=== PATIENT | female | born 1950 | race Caucasian/White ===

== ENCOUNTER 2016-05-31 17:37 | Emergency (ER) | payer OTHER ==
[2016-05-31] MEDS ORDERED: NS 0.9% 1000 ML* 1,000 ML IV ONE ×2 (18:01→18:23)
[2016-05-31] MEDS ORDERED: Ibuprofen TAB* 600 MG PO ONE (18:23)
[2016-05-31] MEDS ORDERED: Ondansetron INJ* 2 MG/ML VIAL IV ONE (18:23)
[2016-05-31] MEDS ORDERED: Butalb/Acetamin/Caff TAB* 1 TAB PO ONE (18:24)
[2016-05-31 18:50] LABS: Hematocrit 43 % (35-47); Hemoglobin 14.5 g/dl (12.0-16.0); Mean Corpuscular HGB Conc 34 g/dl (31-36); Mean Corpuscular Hemoglobin 30 pg (27-31); Mean Corpuscular Volume 89 fL (80-97); Mean Platelet Volume 8 um3 (7.4-10.4); Red Blood Count 4.86 10^6/ul (4.0-5.4); Red Cell Distribution Width 13 % (10.5-15); White Blood Count 6.9 10^3/ul (3.5-10.8)
[2016-05-31 19:08] LABS: Albumin 4.1 g/dL (3.2-5.2); BUN/Creatinine Ratio 14.5 (8-20); Calcium 9.3 mg/dL (8.6-10.3); EGFR African American 109.1 (>60); EGFR Non-African American 84.9 (>60); Globulin 2.8 g/dL (2-4); Total Bilirubin 0.4 mg/dL (0.2-1.0); Total Protein 6.9 g/dL (6.4-8.9)
[2016-05-31 19:11] LABS: Potassium 3.6 mmol/L (3.5-5.0)
[2016-05-31 20:40] VITALS: BP 109/59
--- NOTE | 2016-05-31 20:58 | RAD ---
INDICATION: Cough and malaise COMPARISON: Most recent comparison chest x-ray is dated October 09, 2014 TECHNIQUE: Single AP portable view of the chest was obtained. FINDINGS: Image quality is compromised due to the relative inferiority of a portable chest x-ray. The heart and mediastinum exhibit normal size and contour. The lungs are grossly clear. There is no evidence of a large pleural effusion. Visualized bones are normal for the patient's age. IMPRESSION: No radiographic evidence for acute cardiopulmonary abnormality on this portable chest x-ray.
--- NOTE | 2016-05-31 21:25 | ED ---
Liudmila Gonzalez Anna, scribed for Antonio Flynn MD on 05/31/16 at 1823 . Shortness of Breath - HPI Summary HPI Summary: Patient is a 65 y/o female coming to [facility] presenting with SOB that began one week ago. She since developed discolored nasal discharge, SOLARES, weakness, myalgia , right ear pain, abd pain, nausea, chills, intermittent fever, and emesis. The patient began a Z pack on 05/30/2016, which did not alleviate her symptoms. She started Augmentin this morning. She has not been able to eat or drink much today. She had one episode of diarrhea today. Denies melena, blood in the stool , or coughing blood. Per triage notes, she describes the severity of her symptoms as 01/27. - History of Current Complaint Chief Complaint: EDShortnessOfBreath Time Seen by Provider: 05/31/16 18:00 Hx Obtained From: Patient, Family/Tax Auditor - Accompanied by grandaughter and sister - Allergy/Home Medications Allergies/Adverse Reactions: Allergies Allergy/AdvReac Type Severity Reaction Status Date / Time Aspirin [From Empirin] Allergy Unknown Verified 11/05/12 13:07 Reaction Details Cephalexin Allergy Unknown Verified 11/05/12 13:08 Reaction Details Codeine Allergy Unknown Verified 11/05/12 13:08 Reaction Details Doxycycline Allergy Unknown Verified 11/05/12 13:09 Reaction Details PMH/Surg Hx/FS Hx/Imm Hx Previously Healthy: Yes Endocrine/Hematology History: Denies: Hx Diabetes Cardiovascular History: Reports: Hx Hypertension - CONTROLLED WITH MEDICATION Denies: Hx Pacemaker/ICD Respiratory History: Reports: Hx Chronic Obstructive Pulmonary Disease (COPD) History: Denies: Hx Dialysis, Hx Renal Disease Musculoskeletal History: Denies: Hx Osteoporosis Sensory History: Denies: Hx Hearing Aid Psychiatric History: Denies: Hx Panic Disorder - Cancer History Cancer Type, Location and Year: RT BREAST CA 1993 Hx Chemotherapy: Yes Hx Radiation Therapy: No - Surgical History Surgery Procedure, Year, and Place: MASTECTOMY 01/20/94. BREAST IMPLANT SURGERY X4. EYE MUSCLE SURGERY FOR STRABISMUS. 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 WITH RECON. BASAL CELL REMOVAL Infectious Disease History: No Infectious Disease History: Denies: Traveled Outside the [place] in Last 30 Days - Family History Known Family History: Negative: Cardiac Disease, Diabetes - Social History Occupation: Retired Lives: With Family Alcohol Use: None Hx Substance Use: No Substance Use Type: Reports: None Hx Tobacco Use: Yes Review of Systems Positive: Fever, Chills Positive: Ear Ache, Nasal Discharge Positive: Abdominal Pain, Vomiting, Diarrhea, Nausea Positive: Myalgia Positive: Headache, Weakness All Other Systems Reviewed And Are Negative: Yes Physical Exam - Summary Physical Exam Summary: Vitals WNL. General: Generally malaise but alert and pleasant HEENT: Moist mucosa. Frontal sinus tenderness. TM pearly white. No effusions. Neck: Soft, supple, no adenopathy, no edema Heart: Heart sounds distant but regular. No murmurs, rubs, gallops Lungs: Clear, breathing comfortably, no wheezes or rales Abd: Diffuse tenderness, but soft and flat. No guarding, no rebound. Extremities: No edema, no calf tenderness, no pedal pitting, negative Homans bilaterally. Neuro: Alert & oriented x3 Psych: Logical, coherent Triage Information Reviewed: Yes Vital Signs On Initial Exam: Initial Vitals Temp Pulse Resp BP Pulse Ox 98.2 F 83 20 154/68 100 05/31/16 17:41 05/31/16 17:41 05/31/16 17:41 05/31/16 17:41 05/31/16 17:41 Vital Signs Reviewed: Yes Diagnostics - Vital Signs Vital Signs Temp Pulse Resp BP Pulse Ox 05/31/16 17:41 98.2 F 83 20 154/68 100 - Laboratory Lab Results: Lab Results 05/31/16 05/31/16 Range/Units 18:30 18:30 WBC 6.9 (3.5-10.8) 10^3/ul RBC 4.86 (4.0-5.4) 10^6/ul Hgb 14.5 (12.0-16.0) g/dl Hct 43 (35-47) % MCV 89 (80-97) fL MCH 30 (27-31) pg MCHC 34 (31-36) g/dl RDW 13 (10.5-15) % Plt Count 246 (150-450) 10^3/ul MPV 8 (7.4-10.4) um3 Neut % (Auto) 57.4 (38-83) % Lymph % (Auto) 33.0 (25-47) % Nance % (Auto) 7.7 (1-9) % Eos % (Auto) 1.1 (0-6) % Baso % (Auto) 0.8 (0-2) % Absolute Neuts (auto) 3.9 (1.5-7.7) 10^3/ul Absolute Lymphs (auto) 2.3 (1.0-4.8) 10^3/ul Absolute Monos (auto) 0.5 (0-0.8) 10^3/ul Absolute Eos (auto) 0.1 (0-0.6) 10^3/ul Absolute Basos (auto) 0.1 (0-0.2) 10^3/ul Absolute Nucleated RBC 0 10^3/ul Nucleated RBC % 0 Sodium 137 (133-145) mmol/L Potassium 3.6 (3.5-5.0) mmol/L Chloride 104 (101-111) mmol/L Carbon Dioxide 25 (22-32) mmol/L Anion Gap 8 (2-11) mmol/L BUN 10 (6-24) mg/dL Creatinine 0.69 (0.51-0.95) mg/dL Est GFR ( Amer) 109.1 (>60) Est GFR (Non-Af Amer) 84.9 (>60) BUN/Creatinine Ratio 14.5 (8-20) Glucose 96 (70-100) mg/dL Calcium 9.3 (8.6-10.3) mg/dL Total Bilirubin 0.40 (0.2-1.0) mg/dL AST 24 (13-39) U/L ALT 19 (7-52) U/L Alkaline Phosphatase 50 (34-104) U/L Troponin I 0.00 (<0.04) ng/mL Total Protein 6.9 (6.4-8.9) g/dL Albumin 4.1 (3.2-5.2) g/dL Globulin 2.8 (2-4) g/dL Albumin/Globulin Ratio 1.5 (1-3) Result Diagrams: 05/31/16 18:30 05/31/16 18:30 Lab Statement: Any lab studies that have been ordered have been reviewed, and results considered in the medical decision making process. - Radiology CXR Xray Interpretation: No Acute Changes Radiology Interpretation Completed By: Radiologist - IMPRESSION: No radiographic evidence for acute cardiopulmonary abnormality on this portable chest x-ray. - EKG 1737 Cardiac Rate: NL - 82 bpm EKG Rhythm: Sinus Rhythm ST Segment: Normal EKG Interpretation: No ST changes Re-Evaluation - Re-Evaluation First Eval Re-Evaluation Time: 19:47 Change: Improved Comment: The patient reports that she is feeling better and tolerating walt grace. Course/Dx - Course Assessment/Plan: She has been feeling ill for the past few days. Now her biggest complaints are vomiting and sinus pressure. Vital signs WNL. Workup benign. Phsyical benign except for frontal sinus tenderness. She did mention some vague symptoms of cough. XR is currently pending. If normal, she will be discharged. BRAT diet was described in detail. She will continue on her Augmentin and probiotics and return for any worsening symptoms or signs of dehydration. She is currently tolerating PO fluids and is feeling better. - Diagnoses Differential Diagnosis/HQI/PQRI: Positive: Airway Obstruction, Airway Foreign Body, Asthma, Bronchitis, CHF, Chest Wall Pain, Pneumonia, Pulmonary Embolism, Pulmonary Edema, Unstable Angina Provider Diagnoses: Viral syndrome, Sinusitis Discharge - Discharge Plan Condition: Fair Disposition: HOME Prescriptions: Ondansetron ODT TAB* [Zofran Odt TAB*] 4 mg PO Q8H PRN #12 tab.odt PRN Reason: Nausea Patient Education Materials: Sinusitis (ED), Acute Nausea and Vomiting (ED), Acute Diarrhea (ED) Referrals: Grazyna Chauhan MD [Primary Care Provider] - 2 Days The documentation as recorded by the Liudmila mazariegos Anna accurately reflects the service I personally performed and the decisions made by , Antonio Flynn MD.
== END 2016-05-31 20:39 | disposition home or self-care (01) ==
LOC: ED 17:37
DX: B34.9 Viral infection, unspecified (principal); J32.9 Chronic sinusitis, unspecified; R06.02 Shortness of breath; H92.09 Otalgia, unspecified ear; R11.2 Nausea with vomiting, unspecified; R19.7 Diarrhea, unspecified; R10.9 Unspecified abdominal pain; R51 Headache; R53.1 Weakness
CPT/HCPCS: 36415; 71010; 80053; 84484; 85025; 93005; 96374; 99283; A9270-GY; J2405